=== PATIENT | male | born 1970 | race Caucasian/White ===

== ENCOUNTER 2024-10-24 13:26 | Inpatient (IN) ==
[2024-10-24 14:10] LABS: Hematocrit (blood only) 42.6 % (42.0-52.0); Hemoglobin 15.6 g/dl (14.0-18.0); Mean Corpuscular Hemoglobin 30.8 pg (25.0-34.0); Mean Corpuscular Hgb Conc 36.6 g/dL (32.0-36.0); Mean Platelet Volume 9.2 fL (9.4-12.4); Platelet Count 399 K/uL (130-400); Red Blood Count 5.07 M/uL (4.70-6.10); White Blood Count 9.07 K/ul (4.8-10.8)
[2024-10-24 14:32] LABS: Albumin Globulin Ratio 1.3 (0.9-2); Albumin Level 4.4 gm/dl (3.4-5.0); BUN Creatinine Ratio 20.3 (10-20); Bilirubin,Total 0.6 mg/dl (0.2-1.0); Calcium 9.7 mg/dl (8.6-10.3); Creatinine Clr Calc Pharmacy 131.1 ml/min; Globulin 3.4 gm/dl (2.5-4.0); Potassium 3.7 mmol/L (3.5-5.1); Total Protein 7.8 gm/dl (6.0-8.3)
--- NOTE | 2024-10-24 14:38 | XRay Report ---
XR toe(s) RT min 2V CLINICAL HISTORY: DM, BLISTER R GREAT TOE, EVAL OSTEO COMPARISON: None FINDINGS: There is soft tissue swelling and gas at the great toe. There is a small area of cortical thinning at the distal tip of the first distal phalanx which could represent very early osteomyelitis . No other evidence of osteomyelitis seen. No fracture or dislocation. IMPRESSION: Possible early osteomyelitis at the distal tip of the first distal phalanx. ACT 112: Negative or not required by law. Electronically signed by: Eric Betancoutr M.D. 10/24/2024 2:35 PM
--- NOTE | 2024-10-24 15:14 | Electrocardiogram Report ---
Test Reason : Blood Pressure : */* mmHG Vent. Rate : 107 BPM Atrial Rate : 107 BPM P-R Int : 166 ms QRS Dur : 90 ms QT Int : 346 ms P-R-T Axes : 58 -69 41 degrees QTcB Int : 461 ms Sinus tachycardia Left axis deviation Inferior infarct , age undetermined Poor R wave progression, consider anterior SD vs. lead placement vs. LVH Abnormal ECG No previous ECGs available Confirmed by Deuce Goodson ([id number]) on 10/24/2024 3:14:25 PM Referred By: Confirmed By: Deuce Goodson
[2024-10-24] MEDS ORDERED: VANCOMYCIN CONSULT ACTIVE PRN ×2 (15:23→16:10)
[2024-10-24] MEDS: CEFEPIME 2000MG 2,000 MG/20 ML SYR IV STA (15:38)
--- NOTE | 2024-10-24 15:42 | History & Physical Report ---
Date of Service October 24, 2024 Assessment & Plan (1) Right hallux osteomyelitis: Plan: 54-year-old male with past history of type 2 diabetes who has not followed with a PCP in over a year who presents with a chronic lower foot ulceration/wound with evidence of acute infection worsening over the last week, she shows signs of osteo on x-ray. He has had systemic symptoms including fevers and chills and is tachycardic on admission, does not have leukocytosis. Diabetic foot infection, right hallux osteomyelitis Empirically received cefepime/Flagyl/vancomycin in the ER. Patient is penicillin allergic Wound culture was collected at time of hospitalist assessment, wound probes deep? To bone X-ray with evidence of early osteomyelitis of the hallux Will continue Rocephin/Flagyl/vancomycin on admission. Will follow culture results Patient has been feverish with chills and sweats and is tachycardic and clear source of infection. Does not meet sepsis criteria on admission; blood cultures were ordered due to chills with potential for bacteremia and to ensure that these are clear prior to placing ultrasound-guided versus PICC in the event that 60 weeks of IV antibiotics are required CRP added and trended CBC daily Type II DM Patient does not follow his blood sugars recently. BSG 356 on admission. Reports he takes metformin 1 g twice daily at home Hold home metformin A1c added Basal bolus insulin, goal BSG [id number] Will likely need intensified glycemic control as outpatient.? Addition of Januvia versus basal insulin based on A1c. Establishment of care Previously followed with [facility] otherwise not followed recently. Would like to move care to [facility] physician group moving forward. Will need [facility] or [place] office appointment on discharge if possible, nurse navigator consulted DVT prophylaxis: Lovenox Disposition: MSO CODE STATUS: Full code Diet: Type II DM (2) T2DM (type 2 diabetes mellitus): History of Present Illness Primary Care Provider: Jami Bazan MD Danish is a 54-year-old male who presents with a right toe infection and suspected osteo. Has had purulent drainage and fever in the last several days, did have a right toe blister has been chronic for several months. Danish is seen at the bedside with his present. Reports he has a history of diabetes on metformin but has not checked his blood sugar follow-up with a primary care doctor in over a year. Around 18 months ago he did develop a callus/wound over his right hallux which was generally okay up until a week ago. 1 week ago became warm and patient has had fever and chills. No cough or respiratory symptoms. No nausea/vomiting. The wound does have some clear discharge. No pain, does have diminished sensation in the feet bilaterally. Is felt feverish and was brought into the ER for evaluation with concerns for diabetic foot infection. He does not currently follow with a PCP. Previously followed with [facility] but is interested in switching to [facility] moving forward. Other than metformin he takes no regular medications Denies tobacco and alcohol use Penicillin allergy, rash Full code Endorses history of radicular back pain and diabetes. Denies other chronic medical problems Allergies Allergy/AdvReac Type Severity Reaction Status Date / Time Penicillins Allergy Intermediate rash Verified 06/28/22 10:20 Home Medications Medication Instructions Recorded Confirmed Type metformin 500 mg tablet,extended 1,000 mg PO BIDM 10/24/24 10/24/24 History release 24 hr omeprazole 40 mg capsule,delayed 40 mg PO DAILYBB 10/24/24 10/24/24 History release Past Med/Surg History Problem List (Updated 10/24/24 @ 16:04 by Agustin Neal MD) T2DM (type 2 diabetes mellitus) Right hallux osteomyelitis Cervical spondylosis Hx of tonsillectomy Cervical radicular pain Social History (Updated 06/28/22 @ 10:28 by Gabrielle Andrade RN) Smoking Status: Never smoker Hx Alcohol Use: No Hx Substance Use: No Preferred Language: Yoruba Pigment Pumper Required: No Beliefs That Will Affect Care: None marital status: Current Living Situation: Family current occupational status: employed current occupation: IT How many Children do You have: 1 Feels Safe at Home: Yes Physical Exam Physical Exam: General: A&Ox3. NAD. Cooperative. HEENT: Atraumatic, normocephalic. Vision and hearing intact Pulm: Symmetrical chest rise. No increased work of breathing. No respiratory distress. Cardiac: RRR, -mrg. Radial pulses intact and symmetrical. Abdominal: Nontender, nondistended, soft. BS present. Extremities: Right hallux with 2 areas of ulceration. Small lateral area approximate 2 mm, and plantarmedial aspect is with a larger around 6-7 mm open wound which probes deeply. Clear discharge and surrounding erythema and callus are present. Wound culture collected at time of assessment Results & Data Results & Data Vital Signs (Past 12 Hours) Vital Signs Temp Pulse Resp BP Pulse Ox O2 Del Method 10/24/24 13:42 36.7 C 115 H 16 171/95 H 96 Room Air PG Care Time/CCT Total # of Minutes Spent Total Time Spent with Patient: Total time spent is greater than 50% in coordination of care (as documented) at patient's floor/unit and/or counseling patient: Coding Level of Care Code 40006 INT INP/OBS CARE 3/75MIN Diagnoses Right hallux osteomyelitis M86.9 T2DM (type 2 diabetes mellitus) E11.9
[2024-10-24] MEDS: metroNIDAZOLE 500 MG/100 ML BAG IV STA (15:43)
[2024-10-24] MEDS ORDERED: CARBOHYDRATES FOR HYPOGLYCEMIA PO PRN (16:10)
[2024-10-24] MEDS ORDERED: GLUCOSE 10 TAB/TUBE PO PRN (16:10)
[2024-10-24] MEDS ORDERED: GLUCAGON FOR INJ 1 MG VIAL SQ PRN (16:10)
[2024-10-24] MEDS ORDERED: DEXTROSE 50% 50 ML SYRINGE IV PRN (16:10)
[2024-10-24] MEDS ORDERED: GLUCOSE 40% GEL 15 GM TUBE PO PRN (16:10)
[2024-10-24 16:41] LABS: C Reactive Protein 7.23 mg/dl (0-0.5)
[2024-10-24] MEDS: VANCOMYCIN HCL 2,000 MG in SODIUM CHLORIDE 0.9% 500 ML IV ONE (16:49)
--- NOTE | 2024-10-24 17:00 | Pharmacy Report ---
Pharmacy PK ABX Note - Date of Service October 24, 2024 - Assessment and Plan Assessment 54 year old M receiving vancomycin/rocephin/flagyl for concerns of diabetic foot infection/osteomyelitis. Type 2 diabetic. Patient presenting with chronic lower foot ulceration/wound and evidence of possible infection. Toe xray suggestive of osteomyelitis. Notes report patient had fever/chills prior to admission. Plan Vancomycin * Loading dose: 2000 mg IV x 1 * Maintenance dose: 1750 mg IV every 12 hours * Regimen is predicted to achieve target AUC/DARON of 400-600 mg/L.hr * Plan to order vancomycin level if continued >48 hours Pharmacy will continue to follow and will adjust dose/frequency as necessary. Thank you. Pharmacy has transitioned to AUC monitoring for vancomycin. AUC/DARON is the preferred PK/PD target and is associated with decreased risk of nephrotoxicity compared to traditional trough targets.
[2024-10-24] MEDS: INSULIN ASPART PER UNIT CHARGE SC SCH (18:04)
[2024-10-24] MEDS: LANTUS PER UNIT CHARGE SQ SCH (18:04)
[2024-10-24] MEDS ORDERED: POLYETHYLENE (MIRALAX) 17 GM PACK PO PRN (18:17)
[2024-10-24] MEDS ORDERED: ACETAMINOPHEN 325 MG TAB PO PRN (18:17)
--- NOTE | 2024-10-24 20:17 | Emergency Department Note ---
History of Present Illness General Chief complaint: Toe Injury/Pain Stated complaint: RT BIG TOE INFECTION Time Seen by Provider: 10/24/24 14:05 History of Present Illness Provider complaint: Right toe wound 54-year-old male presents emergency department for right toe wound. He is here with his who is a nurse. reports that the patient suffered a wound on his right toe 1 year ago after walking. Patient is a diabetic. She reports that the patient never saw a doctor about it. She states that the patient has been picking on it and inserting objects into it to try to make the wound better. She states over the last week the wound has gotten worse and has been having purulent discharge that is foul-smelling and the patient has had chills. Home Medications Medication Instructions Recorded Confirmed Type metformin 500 mg tablet,extended 1,000 mg PO BIDM 10/24/24 10/24/24 History release 24 hr omeprazole 40 mg capsule,delayed 40 mg PO DAILYBB 10/24/24 10/24/24 History release Allergies Allergy/AdvReac Type Severity Reaction Status Date / Time Penicillins Allergy Intermediate rash Verified 06/28/22 10:20 Past Med/Surg History Problem List (Updated 10/24/24 @ 20:21 by Harry Jiang MD) Right hallux osteomyelitis (Acute) Cervical spondylosis Cervical radicular pain Medical History T2DM (type 2 diabetes mellitus) Surgical History Hx of tonsillectomy Social History Smoking Status: Never smoker Hx Alcohol Use: No Hx Substance Use: No Preferred Language: Latvian Machinist/Machine Builder Required: No Beliefs That Will Affect Care: None marital status: Current Living Situation: Family current occupational status: employed current occupation: IT How many Children do You have: 1 Feels Safe at Home: Yes Physical Exam Vital Signs Vital Signs - 24 hr 10/24/24 13:42 10/24/24 14:03 10/24/24 16:00 Temperature 36.7 C Temperature Source Temporal Artery Scan Pulse Rate 115 H Pulse Rate [Apical] 102 H Pulse Rhythm [Apical] Regular Pulse Strength Normal Pulse Strength [Apical] Normal Respiratory Rate 16 19 Respiratory Effort / Characteristics Non-Labored Spontaneous Non-Labored Spontaneous Respiratory Depth Normal Normal Normal Respiratory Pattern Regular Regular Blood Pressure 171/95 H Blood Pressure [Left Arm] 146/98 H Blood Pressure Mean 120 Blood Pressure Mean [Left Arm] 114 Blood Pressure Position Sitting Blood Pressure Position [Left Arm] Sitting Pulse Oximetry 96 96 Oxygen Delivery Method Room Air Room Air Sepsis Recent Fever Within 48 Hours No Sepsis New/Unexplained Change in Mental Status No Sepsis Action Taken by Nursing No Action Required 10/24/24 16:04 Temperature Temperature Source Pulse Rate 101 H Pulse Rate [Apical] Pulse Rhythm [Apical] Pulse Strength Pulse Strength [Apical] Respiratory Rate Respiratory Effort / Characteristics Respiratory Depth Respiratory Pattern Blood Pressure Blood Pressure [Left Arm] Blood Pressure Mean Blood Pressure Mean [Left Arm] Blood Pressure Position Blood Pressure Position [Left Arm] Pulse Oximetry Oxygen Delivery Method Sepsis Recent Fever Within 48 Hours Sepsis New/Unexplained Change in Mental Status Sepsis Action Taken by Nursing Physical Exam GENERAL: oriented to person, place, and time. appears well-developed and well- nourished. HENT: Exam performed. - Head: Normocephalic and atraumatic. EYES: Conjunctivae and EOM are normal. Right eye exhibits no discharge. Left eye exhibits no discharge. No scleral icterus. NECK: Normal range of motion. Neck supple. No JVD present. CV: Normal rate, regular rhythm, normal heart sounds and intact distal pulses. There is no peripheral edema. Palpable radial pulses bue. PULM/CHEST: Effort normal and breath sounds normal. No respiratory distress. No stridor. no wheezes. no rales. MUSC: Palpable DP and PT pulses bilateral lower extremities. NEURO: Motor and sensation grossly intact. SKIN: Wound over the right toe with purulent discharge coming from it. No fluctuant area. Course Course 1405: The patient was evaluated in room A4. A complete history and physical exam was performed 1525: Vital signs stable. Imaging shows possible osteomyelitis. Discussed with pharmacy and patient will be treated with vancomycin and cefepime and Flagyl. [facility]. Administered Medications Insulin Aspart (Insulin Aspart Per Unit Charge) 0 units SC ACHS [facility] Stop: 11/23/24 16:29 Last Admin: 10/24/24 18:04 Dose: 4 units Documented By: SNS Co-signed By: PHYLLIS Insulin Glargine (Lantus Per Unit Charge) 7 units SQ BID [facility] Stop: 11/23/24 16:14 Last Admin: 10/24/24 18:04 Dose: 7 units Documented By: RONALDO Co-signed By: PHYLLIS Discontinued Medications Vancomycin HCl 2,000 mg/ (Sodium Chloride) 540 mls @ 200 mls/hr IV NOW ONE Stop: 10/24/24 18:04 Last Infusion: 10/24/24 19:39 Dose: Infused Documented By: Admin: 10/24/24 16:49 Dose: 200 mls/hr Documented By: RONALDO Cefepime HCl (Maxipime 2000mg) 2,000 mg in 20 mls @ 5 mls/min IV NOW STA; Protocol Stop: 10/24/24 15:26 Last Admin: 10/24/24 15:38 Dose: 5 mls/min Documented By: RONALDO Metronidazole (Flagyl) 500 mg in 100 mls @ 100 mls/hr IV NOW STA Stop: 10/24/24 16:22 Last Infusion: 10/24/24 16:46 Dose: Infused Documented By: Admin: 10/24/24 15:43 Dose: 100 mls/hr Documented By: RONALDO Medical Decision Making Laboratory Data Attestation: I reviewed the patient's lab results. 10/24/24 13:56 10/24/24 13:56 Lab Results 10/24/24 Range/Units 13:56 WBC 9.07 (4.8-10.8) K/ul RBC 5.07 (4.70-6.10) M/uL Hgb 15.6 (14.0-18.0) g/dl Hct 42.6 (42.0-52.0) % MCV 84.0 (80.0-100.0) fL MCH 30.8 (25.0-34.0) pg MCHC 36.6 H (32.0-36.0) g/dL RDW Std Deviation 36.0 L (36.4-46.3) fL RDW Coeff of Ana 12.0 (11.5-14.5) % Plt Count 399 (130-400) K/uL MPV 9.2 L (9.4-12.4) fL Sodium 135 L (136-145) mmol/L Potassium 3.7 (3.5-5.1) mmol/L Chloride 100 (98-107) mmol/L Carbon Dioxide 25 (21-32) mmol/L Anion Gap 10 (3-11) BUN 15 (6-23) mg/dl Creatinine 0.74 (0.6-1.4) mg/dl Est Cr Clr Drug Dosing 131.1 ml/min eGFR 107.01 BUN/Creatinine Ratio 20.3 H (10-20) Glucose 356 H* (70-99(Fasting)) mg/dl Calcium 9.7 (8.6-10.3) mg/dl Total Bilirubin 0.6 (0.2-1.0) mg/dl AST 21 (13-39) U/L ALT 29 (7-52) U/L Alkaline Phosphatase 138 H (34-104) U/L C-Reactive Protein 7.23 H (0-0.5) mg/dl Total Protein 7.8 (6.0-8.3) gm/dl Albumin 4.4 (3.4-5.0) gm/dl Globulin 3.4 (2.5-4.0) gm/dl Albumin/Globulin Ratio 1.3 (0.9-2) Imaging Data Radiologist's Impression: Toe X-Ray 10/24/24 13:49 XR toe(s) RT min 2V CLINICAL HISTORY: DM, BLISTER R GREAT TOE, EVAL OSTEO COMPARISON: None FINDINGS: There is soft tissue swelling and gas at the great toe. There is a small area of cortical thinning at the distal tip of the first distal phalanx which could represent very early osteomyelitis. No other evidence of osteomyelitis seen. No fracture or dislocation. IMPRESSION: Possible early osteomyelitis at the distal tip of the first distal phalanx. ACT 112: Negative or not required by law. Electronically signed by: Eric Betancourt M.D. 10/24/2024 2:35 PM MDM Narrative Vital signs stable. Imaging shows possible osteomyelitis. Discussed with pharmacy and patient will be treated with vancomycin and cefepime and Flagyl. [facility]. Impression & Plan Right hallux osteomyelitis Discharge Plan Visit Data Chief Complaint: Toe Injury/Pain Stated Complaint: RT BIG TOE INFECTION ED Provider: Harry Jiang Discharge Problem: Right hallux osteomyelitis Patient Disposition: Admitted As Inpatient Discharge Instructions Interventions: ED Discharge Assessment Last Done: 10/24/24 18:17
[2024-10-24] MEDS: ENOXAPARIN INJ 40 MG/0.4 ML SYR SQ SCH (21:05)
[2024-10-24] MEDS: cefTRIAXone SODIUM 2,000 MG/50 ML BAG IV SCH (23:07)
[2024-10-24] MEDS: metroNIDAZOLE 500 MG/100 ML BAG IV SCH (23:44)
[2024-10-25] MEDS: VANCOMYCIN HCL 1,750 MG in SODIUM CHLORIDE 0.9% 500 ML IV SCH (03:04)
[2024-10-25 07:12] LABS: Basophils # (auto) 0.05 K/uL (0.00-0.20); Basophils % (auto) 0.6 %; Eosinophils % (auto) 3.9 %; Hematocrit (blood only) 38.3 % (42.0-52.0); Hemoglobin 13.5 g/dl (14.0-18.0); Immature Granulocytes # (auto) 0.08 K/uL (0.01-0.20); Lymphocytes # (auto) 1.85 K/uL (1.20-3.40); Lymphocytes % (auto) 23.9 %; Mean Corpuscular Hemoglobin 30.6 pg (25.0-34.0); Mean Corpuscular Hgb Conc 35.2 g/dL (32.0-36.0); Mean Corpuscular Volume 86.8 fL (80.0-100.0); Mean Platelet Volume 9.2 fL (9.4-12.4); Monocytes # (auto) 0.81 K/uL (0.11-0.59); Monocytes % (auto) 10.5 %; Neutrophils # (auto) 4.65 K/uL (1.40-6.50); Neutrophils % (auto) 60.1 %; Platelet Count 356 K/uL (130-400); RDW Coefficient of Variation 11.9 % (11.5-14.5); RDW Standard Deviation 38.3 fL (36.4-46.3); Red Blood Count 4.41 M/uL (4.70-6.10); White Blood Count 7.74 K/ul (4.8-10.8)
[2024-10-25 07:35] LABS: C Reactive Protein 4.93 mg/dl (0-0.5); Calcium 8.9 mg/dl (8.6-10.3); Creatinine Clr Calc Pharmacy 138.6 ml/min; Potassium 3.7 mmol/L (3.5-5.1)
[2024-10-25 07:38] LABS: Estimated Average Glucose 312 mg/dl; Hemoglobin A1C 12.5 % (4.5-5.6)
[2024-10-25] MEDS ORDERED: INFLUENZA VACC TS2024-25(6m+)/PF (IIV3) 0.5mL Syr IM ONE (09:00)
[2024-10-25] MEDS: GADOBUTROL 65ML VIAL IV ONE (13:24)
--- NOTE | 2024-10-25 14:27 | Magnetic Resonance Report ---
MR foot RT wo/w con HISTORY: 54 years-old Male R great toe osteomyelitis? Acute pain and swelling of the right foot with possible great toe osteomyelitis COMPARISON: Radiograph 10/24/2024 TECHNIQUE: Multiplanar multisequence MRI of the right foot is obtained with and without IV contrast. FINDINGS: There is moderate subcutaneous edema throughout the great toe and dorsal foot. Peripherally enhancing cutaneous ulcer on the distal medial great toe measures up to 1.5 cm in length on image 8 series 5. No drainable fluid collection. This is surrounded by a 3 cm focus of decreased enhancement involving the soft tissues of the distal toe on image 7 series 11 and image 21 series 12 suggestive of tissue n ecrosis. The imaged flexor and extensor tendons and ligaments of the foot appear intact. Multifocal osteoarthritis, severe within the first MTP joint. There is marked marrow edema of the fir st distal phalanx along with moderately diffuse decreased T1 marrow signal and diffuse enhancement. N o definite cortical erosion identified at this time. Relatively preserved marrow signal of the first proximal phalanx. Areas of scattered mild to moderate marrow edema throughout the mid foot secondary to osteoarthritis. IMPRESSION: 1. Marked marrow edema of the first distal phalanx with moderately decreased T1 marrow signal. The co rtices appear relatively well preserved at this time without identifiable bony erosions. Findings are suggestive of reactive osteitis versus early developing osteomyelitis. 2. Great toe cutaneous ulcer/sinus tract extending to the adjacent distal phalangeal cortex. There is associated cellulitis with suggested distal toe tissue necrosis. 3. No definite abscess. ACT 112: Negative or not required by law. The above report was generated using voice recognition software. It may contain grammatical, syntax o r spelling errors. Electronically signed by: Tiago Jo M.D. 10/25/2024 2:25 PM
--- NOTE | 2024-10-25 19:20 | Hospitalist Progress Note ---
Date of Service October 25, 2024 Assessment & Plan (1) Right hallux osteomyelitis: Plan: 54yo male with uncontrolled type 2 diabetes who has not followed with a PCP in over a year. Presented with a chronic right great toe ulceration/wound with evidence of acute infection worsening over the last week. x-ray with possible osteomyelitis of right great toe distal tuft. MRI of right great toe c/w osteomyelitis. I consulted Dr Denney from podiatry. He has advised amputation. Remains on rocephin/flagyl/vancomycin. Culture from right great toe pending. On exam has intact arterial circulation; defer on duplex study of arterial system. Needs improved glycemic control - see below. Appreciate podiatry assistance. (2) T2DM (type 2 diabetes mellitus): Plan: uncontrolled with a1c 12.5% titrate lantus BID titrate novolog suspect he will need some insulin at d/c in addition to his metformin patient is motivated to get his DM under better control Plan DVT proph - lovenox daily updated at bedside Admission and Anticipated Discharge Date Admission Date: October 24, 2024 Subjective patient denies pain in his right great toe at bedside he voices frustration that he hasn't been taking good care of himself, his DM, etc. he is committed to getting back on track with his overall health he is not opposed to insulin at home if deemed necessary appetite is wnl Review of Systems Review of Systems: gen - no fevers or chills cv - no chest pain pulm - no dyspnea Physical Exam Physical Exam: gen - nontoxic, NAD, pleasant mouth - MMM, no thrush neck - no JVD heart - RRR, s1 s2, no murmur lungs - CTA b/l abd - soft NT ND BS+ ext - b/l foot pulses 2+, no edema skin - right great toe - marked generalized swelling of entire toe; purulent discharge distal tuft with open ulcer; erythema of right great toe; malodor present; no cellulitis of the right foot musculo - neuropathic changes of b/l feet (high arches, hammer toes, etc) Results & Data Results & Data Vital Signs (Past 12 Hours) Vital Signs Temp Pulse Resp BP Pulse Ox O2 Del Method 10/25/24 15:11 37 C 91 H 18 137/86 96 Room Air Laboratory Results Laboratory Results - last 24 hr 10/24/24 10/25/24 10/25/24 20:10 06:26 07:34 WBC 7.74 RBC 4.41 L Hgb 13.5 L Hct 38.3 L MCV 86.8 MCH 30.6 MCHC 35.2 RDW Std Deviation 38.3 RDW Coeff of Ana 11.9 Plt Count 356 MPV 9.2 L Immature Gran % (Auto) 1.0 Neut % (Auto) 60.1 Lymph % (Auto) 23.9 [place] % (Auto) 10.5 Eos % (Auto) 3.9 Baso % (Auto) 0.6 Neut # (Auto) 4.65 Lymph # (Auto) 1.85 [place] # (Auto) 0.81 H Eos # (Auto) 0.30 Baso # (Auto) 0.05 Immature Gran # (Auto) 0.08 Sodium 137 Potassium 3.7 Chloride 103 Carbon Dioxide 26 Anion Gap 8 BUN 14 Creatinine 0.70 Est Cr Clr Drug Dosing 138.6 eGFR 108.82 BUN/Creatinine Ratio 20.0 Glucose 256 H POC Glucose 264 H 227 H Estimat Average Glucose 312 Hemoglobin A1c 12.5 H Calcium 8.9 C-Reactive Protein 4.93 H 10/25/24 10/25/24 11:42 16:54 WBC RBC Hgb Hct MCV MCH MCHC RDW Std Deviation RDW Coeff of Ana Plt Count MPV Immature Gran % (Auto) Neut % (Auto) Lymph % (Auto) [place] % (Auto) Eos % (Auto) Baso % (Auto) Neut # (Auto) Lymph # (Auto) [place] # (Auto) Eos # (Auto) Baso # (Auto) Immature Gran # (Auto) Sodium Potassium Chloride Carbon Dioxide Anion Gap BUN Creatinine Est Cr Clr Drug Dosing eGFR BUN/Creatinine Ratio Glucose POC Glucose 233 H 192 H Estimat Average Glucose Hemoglobin A1c Calcium C-Reactive Protein Diagnostic Findings Foot MRI 10/25/24 10:46 MR foot RT wo/w con HISTORY: 54 years-old Male R great toe osteomyelitis? Acute pain and swelling of the right foot with possible great toe osteomyelitis COMPARISON: Radiograph 10/24/2024 TECHNIQUE: Multiplanar multisequence MRI of the right foot is obtained with and without IV contrast. FINDINGS: There is moderate subcutaneous edema throughout the great toe and dorsal foot. Peripherally enhancing cutaneous ulcer on the distal medial great toe measures up to 1.5 cm in length on image 8 series 5. No drainable fluid collection. This is surrounded by a 3 cm focus of decreased enhancement involving the soft tissues of the distal toe on image 7 series 11 and image 21 series 12 suggestive of tissue necrosis. The imaged flexor and extensor tendons and ligaments of the foot appear intact. Multifocal osteoarthritis, severe within the first MTP joint. There is marked marrow edema of the first distal phalanx along with moderately diffuse decreased T1 marrow signal and diffuse enhancement. No definite cortical erosion identified at this time. Relatively preserved marrow signal of the first proximal phalanx. Areas of scattered mild to moderate marrow edema throughout the mid foot secondary to osteoarthritis. IMPRESSION: 1. Marked marrow edema of the first distal phalanx with moderately decreased T1 marrow signal. The cortices appear relatively well preserved at this time without identifiable bony erosions. Findings are suggestive of reactive osteitis versus early developing osteomyelitis. 2. Great toe cutaneous ulcer/sinus tract extending to the adjacent distal phalangeal cortex. There is associated cellulitis with suggested distal toe tissue necrosis. 3. No definite abscess. ACT 112: Negative or not required by law. The above report was generated using voice recognition software. It may contain grammatical, syntax or spelling errors. Electronically signed by: Tiago Jo M.D. 10/25/2024 2:25 PM PG Care Time/CCT Total # of Minutes Spent Total Time Spent with Patient: Total time spent is greater than 50% in coordination of care (as documented) at patient's floor/unit and/or counseling patient: Coding Level of Care Code 95306 SUB INP/OBS CARE 2/35MIN Diagnoses Right hallux osteomyelitis M86.9 T2DM (type 2 diabetes mellitus) E11.9
[2024-10-25] MEDS: LANTUS PER UNIT CHARGE SQ SCH (20:53)
--- NOTE | 2024-10-25 21:22 | Podiatry Consultation ---
Date of Consultation October 25, 2024 Assessment & Plan (1) Right hallux osteomyelitis: (2) Chronic ulcer of right foot with necrosis of bone: (3) Uncontrolled type 2 diabetes mellitus with hyperglycemia: (4) Diabetes mellitus with foot ulcer and gangrene: Plan Patient examined and evaluated. MRI and imaging reviewed. Discussed at length treatment options/etiology of this right hallux ulceration. Options include 2 months IV antibiotics versus hallux amputation at the IPJ. He is leaning towards amputation as a more definitive treatment. He will discuss this further with his and we will work on getting it on the schedule for tomorrow, if amenable. Preoperative orders to be placed in case. Will send samples for culture and pathology as indicated. Thanks for the consult. We're always happy to help when possible. History of Present Illness Reason for Consultation: Right hallux osteomyelitis Attending Physician: Sincere Choe MD History of Present Illness Patient seen at bedside. States he has a history of diabetes and blister formation to this inside bottom of the great toe in the past. Because prior blisters healed well, he did not seek treatment despite his diabetes diagnosis and "knowing better." It did not hurt and he expected it to heal. Instead, over the last few weeks it has progressed to a significant infection, which drove him to seek treatment. His is at bedside and agrees with this series of events; they are now interested in how to approach treatment with the bone infection. He does admit to systemic and local signs/symptoms of infection and just "feeling sick." Further, he states that his blood sugar has not been well controlled recently but is unsure of his most recent A1c. Allergies Allergy/AdvReac Type Severity Reaction Status Date / Time Penicillins Allergy Intermediate rash Verified 06/28/22 10:20 Home Medications Medication Instructions Recorded Confirmed Type metformin 500 mg tablet,extended 1,000 mg PO BIDM 10/24/24 10/24/24 History release 24 hr omeprazole 40 mg capsule,delayed 40 mg PO DAILYBB 10/24/24 10/24/24 History release Patient History Medical History T2DM (type 2 diabetes mellitus) Surgical History Hx of tonsillectomy Social History Smoking Status: Never smoker Hx Alcohol Use: Yes Alcohol type: beer, wine and hard liquor Hx Substance Use: No Preferred Language: Cymro Communication Ability: Effective Trouble Locator Test Desk Required: No Beliefs That Will Affect Care: None marital status: Current Living Situation: Spouse current occupational status: employed current occupation: IT How many Children do You have: 1 Other Information That Helps Us Care for You: No Feels Safe at Home: Yes Safety Concerns: Feels Safe At This Time Assistive Devices: None Review of Systems Review of Systems: All systems reviewed & are unremarkable except as noted in HPI & below Constitutional: + fever, + malaise and + weakness; no ch ills and no fatigue Eyes: no problem reported Ear, Nose, Mouth, Throat: no problem reported Respiratory: no problem reported Cardiovascular: + edema; no problem reported Gastrointestinal: no nausea, no vomiting and no problem reported Musculoskeletal: no problem reported Integumentary: + skin ulcer, + wounds and + erythema Neurologic: + loss of sensation, + numbness and + pa resthesia; no localized weakness and no generalized weakness Psychiatric: no problem reported Physical Exam Physical Exam: RLE Focused exam: DP/PT pulses faintly palpable. CFT brisk to digits. Hair growth noted to digits. Skin supple, hydrated. Ulceration is noted to plantar medial distal phalanx. Ulcer probes to distal phalanx with lara purulence noted on exam. Diffuse edema associated with this ulceration/infection to the great toe. Erythema noted to foot overall with minimal streaking/ascending cellultis noted Plain film imaging showed ulceration to soft tissue with some cortical erosion; MRI confirms this with increased fluid signal intensity to the distal phalanx, all confirming osteomyelitis. Constitutional: WD/WN, vitals as above + ill appearing; no acute distress Eyes: PERRL, conjunctivae normal, anicteric sclerae ENMT: external ear and nose normal, oropharynx normal Neck: trachea midline, no thyromegaly normal visual inspection Respiratory: normal respiratory effort; no respiratory distress Cardiovascular: Rate/Rhythm: regular rate and regular rhythm Vessels: posterior tibial pulses present and dorsalis pedis pulses present Chest (Breasts): Chest: normal inspection of chest Gastrointestinal (Abdomen): Inspection/Auscultation: abdomen normal to inspection Percussion/Palpation: + abdomen tender and abdomen soft Musculoskeletal: no cyanosis or clubbing, extremities motor strength 5/5 Head/Neck/Chest: normocephalic and head atraumatic Extremities: extremities normal to inspection Neurologic: awake; no focal motor deficits Psychiatric: A+Ox3, euthymic affect Results & Data Vital Signs (Past 12 Hours) Vital Signs Temp Pulse Resp BP Pulse Ox O2 Del Method 10/25/24 19:39 36.4 C L 89 16 141/88 H 94 Room Air 10/25/24 15:11 37 C 91 H 18 137/86 96 Room Air
[2024-10-26] MEDS ORDERED: Nursing to Pharmacy Communication SCH ×2 (00:45→18:30)
[2024-10-26] MEDS: INSULIN ASPART PER UNIT CHARGE SC SCH ×2 (01:24→20:57)
[2024-10-26] MEDS: ONDANSETRON INJ 2 MG/ML 2 ML VIAL IV PRN (02:13)
[2024-10-26] MEDS: PANTOprazole 40 MG/10 ML SYR IV ONE (06:35)
[2024-10-26 07:26] LABS: BUN Creatinine Ratio 19.4 (10-20); Calcium 9.3 mg/dl (8.6-10.3); Creatinine Clr Calc Pharmacy 134.8 ml/min; Potassium 3.9 mmol/L (3.5-5.1)
[2024-10-26 07:34] LABS: Basophils # (auto) 0.04 K/uL (0.00-0.20); Basophils % (auto) 0.6 %; Eosinophils # (auto) 0.25 K/uL (0.00-0.50); Eosinophils % (auto) 3.9 %; Hematocrit (blood only) 37.2 % (42.0-52.0); Hemoglobin 13.1 g/dl (14.0-18.0); Immature Granulocytes # (auto) 0.08 K/uL (0.01-0.20); Immature Granulocytes % (auto) 1.3 %; Lymphocytes # (auto) 1.76 K/uL (1.20-3.40); Lymphocytes % (auto) 27.5 %; Mean Corpuscular Hemoglobin 30.9 pg (25.0-34.0); Mean Corpuscular Hgb Conc 35.2 g/dL (32.0-36.0); Mean Corpuscular Volume 87.7 fL (80.0-100.0); Mean Platelet Volume 9.2 fL (9.4-12.4); Monocytes # (auto) 0.53 K/uL (0.11-0.59); Monocytes % (auto) 8.3 %; Neutrophils # (auto) 3.74 K/uL (1.40-6.50); Neutrophils % (auto) 58.4 %; Platelet Count 375 K/uL (130-400); RDW Coefficient of Variation 12.1 % (11.5-14.5); Red Blood Count 4.24 M/uL (4.70-6.10)
[2024-10-26 07:41] LABS: Thyroid Stimulating Hormone 1.935 uIu/ml (0.300-4.500)
--- NOTE | 2024-10-26 13:33 | History & Physical Bridge Note ---
Date of Service October 26, 2024 History & Physical Bridge Note I have examined the patient, reviewed the History & Physical and in the interval since the performance of the History & Physical I have noted the following changes of clinical significance: no changes noted. Reviewed preoperative instructions, postoperative instructions, risks, and outcomes. Consent obtained for right hallux partial amputation. All questions answered.
[2024-10-26] MEDS ORDERED: MIDAZOLAM HCL 1 MG/ML 2ML VIAL ONE (16:04)
[2024-10-26] MEDS ORDERED: PROPOFOL IV EMULSION 10 MG/ML 20 ML VIAL IV ONE ×2 (16:04→16:53)
[2024-10-26] MEDS ORDERED: LIDOCAINE 2% 2 ML VIAL/AMP(20MG/ML) INFIL ONE (16:04)
[2024-10-26] MEDS ORDERED: ONDANSETRON INJ 2 MG/ML 2 ML VIAL IV PRN (16:13)
[2024-10-26] MEDS ORDERED: ATROPINE SULFATE 0.1 MG/ML 10ML SYR IV PRN (16:13)
[2024-10-26] MEDS ORDERED: fentaNYL citrate PF 100 MCG/2 ML VIAL IV PRN (16:13)
[2024-10-26] MEDS ORDERED: ePHEDrine sulfate 50 MG/ML AMP IV PRN (16:13)
--- NOTE | 2024-10-26 16:13 | Anesthesiology Consultation ---
Date of Service October 26, 2024 Assessment & Plan (1) Encounter for pre-operative examination: Chart Review Chart Review: Acceptable Risk for Surgery and Patient NOT seen in Pre Admission Testing Consults Requested none History Surgery Operation Date: 10/26/24 07:50 Proposed Procedures p Right Great Toe Amputation - Jo-Ann Denney DPM Height/Weight Height: 6 ft 2 in Weight: 92.5 kg Allergies Allergy/AdvReac Type Severity Reaction Status Date / Time Penicillins Allergy Intermediate rash Verified 06/28/22 10:20 Medications Home Medications Medication Instructions Recorded Confirmed Last Taken metformin 500 mg tablet,extended 1,000 mg PO BIDM 10/24/24 10/24/24 Unknown release 24 hr omeprazole 40 mg capsule,delayed 40 mg PO DAILYBB 10/24/24 10/24/24 Unknown release Active Medications Generic Name Dose Route Start Last Admin Trade Name Freq PRN Reason Stop Dose Admin Enoxaparin Sodium 40 mg 10/24/24 21:00 10/25/24 20:54 Enoxaparin Inj 40 Mg/0.4 Ml Syr SQ 11/23/24 20:59 40 mg HS KRISTAN Administration Ceftriaxone Sodium 2,000 mg in 50 mls @ 100 mls/hr 10/25/24 00:00 10/26/24 01:00 Rocephin IV 12/06/24 00:00 Infused Q24H KRISTAN Infusion Metronidazole 500 mg in 100 mls @ 100 mls/hr 10/25/24 00:00 10/26/24 16:00 Flagyl IV 12/06/24 00:00 100 mls/hr Q8H KRISTAN Administration Protocol Insulin Aspart 0 units 10/26/24 00:45 10/26/24 12:11 Insulin Aspart Per Unit Charge SC 11/25/24 00:44 1 units Q6 KRISTAN Administration Ondansetron HCl 4 mg 10/26/24 01:50 10/26/24 02:13 Ondansetron Inj 2 Mg/Ml 2 Ml Vial IV 11/25/24 01:49 4 mg Q6H PRN Administration Nausea And Vomiting NPO Date Last Intake of Fluids: 10/25/24 Time Last Intake of Fluids: 23:00 Date Last Intake of Solids: 10/25/24 Time Last Intake of Solids: 23:00 Past Medical History Medical History T2DM (type 2 diabetes mellitus) Past Surgical History Surgical History Hx of tonsillectomy Social History Smoking Status: Never smoker Hx Alcohol Use: Yes Alcohol type: beer, wine and hard liquor alcohol intake frequency: holidays/special occasions only Hx Substance Use: No substance use type: does not use Physical Exam Vital Signs Last Vital Signs Temp 98.6 F 10/26/24 16:00 Pulse 97 H 10/26/24 16:00 Resp 18 10/26/24 16:00 BP 155/98 H 10/26/24 16:00 Pulse Ox 97 10/26/24 16:00 O2 Del Method Room Air 10/26/24 16:00 Testing Laboratory Results 10/26/24 06:08 10/26/24 06:08 Hemoglobin A1c 12.5 % (4.5-5.6) H 10/25/24 06:26 10/24/24 16:00 Gram Stain - Final Toe,Right Great Aerobic and Anaerobic Culture - Preliminary Streptococcus canis Prevotella denticola 10/24/24 17:36 Aerobic Blood Culture - Preliminary Blood No growth in Aerobic bottle after 24 hours. Anaerobic Blood Culture - Preliminary No growth in Anaerobic bottle after 24 hours. 10/24/24 16:23 Aerobic Blood Culture - Preliminary Blood No growth in Aerobic bottle after 24 hours. Anaerobic Blood Culture - Preliminary No growth in Anaerobic bottle after 24 hours. 10/26/24 10/26/24 11:59 06:07 POC Glucose 180 H 187 H
[2024-10-26] MEDS ORDERED: KETAMINE HCL 10MG/ML SYR ONE (16:32)
[2024-10-26] MEDS ORDERED: ONDANSETRON INJ 2 MG/ML 2 ML VIAL ONE (16:44)
[2024-10-26] MEDS: BUPIVACAINE 0.5 % 5 MG/1 ML MPF 30ML VIAL ONE (17:17)
--- NOTE | 2024-10-26 18:18 | Hospitalist Progress Note ---
Date of Service October 26, 2024 Assessment & Plan (1) Right hallux osteomyelitis: Plan: 54yo male with uncontrolled type 2 diabetes who has not followed with a PCP in over a year. Presented with a chronic right great toe ulceration/wound with evidence of acute infection worsening over the last week. x-ray with possible osteomyelitis of right great toe distal tuft. MRI of right great toe c/w osteomyelitis. Culture from right great toe has grown 2 pathogens to date --> strep canis prevotella denticola no MRSA - stop vancomycin today Dr Denney from podiatry performed right great toe amputation appreciate the assistance from podiatry cont fina/[place] for now by report podiatry got good surgical margins and thus IV abx won't be needed at d/c can likely give 2 weeks of PO augmentin at d/c which will cover current path ogens (as long as no new pathogens grow) follow intra op cultures will need surgical shoe for right foot can WBAT with that shoe in place on exam has intact arterial circulation; defer on duplex study of arterial system Needs improved glycemic control - see below (2) T2DM (type 2 diabetes mellitus): Plan: uncontrolled with a1c 12.5% improving titrate lantus BID titrate novolog suspect he will need some insulin at d/c in addition to his metformin he is willing to do lantus called lantus pens into [facility] pharmacy for him to bring to hospital so he can self-administer and get the hang of it patient is motivated to get his DM under better control Plan DVT proph - lovenox daily updated at bedside today Admission and Anticipated Discharge Date Admission Date: October 24, 2024 Subjective saw patient post-op from his right great toe amputation he denied any pain in the right foot mild nausea while in PACU - now resolved no chest pain or dyspnea or diaphoresis he is hoping for d/c home tomorrow willing to do lantus at home for his DM Review of Systems Review of Systems: gen - no fevers or chills cv - no cp, no orthopnea pulm - no dyspnea GI - no vomiting despite the nausea Physical Exam Physical Exam: gen - nontoxic, NAD, pleasant, laying in bed comfortably mouth - MMM, no thrush neck - no JVD heart - RRR, s1 s2, no murmur lungs - CTA b/l abd - soft NT ND BS+ ext - b/l foot pulses 2+, no edema skin - right foot/ankle dressings intact - I did not remove these Results & Data Results & Data Vital Signs (Past 12 Hours) Vital Signs Temp Pulse Pulse Resp BP Pulse Ox O2 Del Method 10/26/24 18:00 36.7 C 75 15 140/86 97 Room Air 10/26/24 17:50 73 12 136/90 99 Room Air 10/26/24 17:40 79 15 132/93 99 Room Air 10/26/24 17:32 36.4 C L 76 13 124/83 100 Room Air 10/26/24 16:00 37.0 C 97 H 18 155/98 H 97 Room Air 10/26/24 15:04 36.7 C 95 H 17 162/84 H 98 Room Air 10/26/24 07:28 37.2 C 87 18 117/75 93 Room Air Laboratory Results Laboratory Results - last 24 hr 10/26/24 10/26/24 10/26/24 06:07 06:08 11:59 WBC 6.40 RBC 4.24 L Hgb 13.1 L Hct 37.2 L MCV 87.7 MCH 30.9 MCHC 35.2 RDW Std Deviation 39.0 RDW Coeff of Ana 12.1 Plt Count 375 MPV 9.2 L Immature Gran % (Auto) 1.3 Neut % (Auto) 58.4 Lymph % (Auto) 27.5 [place] % (Auto) 8.3 Eos % (Auto) 3.9 Baso % (Auto) 0.6 Neut # (Auto) 3.74 Lymph # (Auto) 1.76 [place] # (Auto) 0.53 Eos # (Auto) 0.25 Baso # (Auto) 0.04 Immature Gran # (Auto) 0.08 Sodium 139 Potassium 3.9 Chloride 104 Carbon Dioxide 28 Anion Gap 7 BUN 14 Creatinine 0.72 Est Cr Clr Drug Dosing 134.8 eGFR 107.89 BUN/Creatinine Ratio 19.4 Glucose 197 H POC Glucose 187 H 180 H Calcium 9.3 TSH 1.935 Random Vancomycin 10/26/24 10/26/24 10/26/24 12:54 16:18 17:34 WBC RBC Hgb Hct MCV MCH MCHC RDW Std Deviation RDW Coeff of Ana Plt Count MPV Immature Gran % (Auto) Neut % (Auto) Lymph % (Auto) [place] % (Auto) Eos % (Auto) Baso % (Auto) Neut # (Auto) Lymph # (Auto) [place] # (Auto) Eos # (Auto) Baso # (Auto) Immature Gran # (Auto) Sodium Potassium Chloride Carbon Dioxide Anion Gap BUN Creatinine Est Cr Clr Drug Dosing eGFR BUN/Creatinine Ratio Glucose POC Glucose 165 H 160 H Calcium TSH Random Vancomycin 10.2 10/26/24 10/26/24 18:38 20:33 WBC RBC Hgb Hct MCV MCH MCHC RDW Std Deviation RDW Coeff of Ana Plt Count MPV Immature Gran % (Auto) Neut % (Auto) Lymph % (Auto) [place] % (Auto) Eos % (Auto) Baso % (Auto) Neut # (Auto) Lymph # (Auto) [place] # (Auto) Eos # (Auto) Baso # (Auto) Immature Gran # (Auto) Sodium Potassium Chloride Carbon Dioxide Anion Gap BUN Creatinine Est Cr Clr Drug Dosing eGFR BUN/Creatinine Ratio Glucose POC Glucose 139 H 180 H Calcium TSH Random Vancomycin PG Care Time/CCT Total # of Minutes Spent Total Time Spent with Patient: Total time spent is greater than 50% in coordination of care (as documented) at patient's floor/unit and/or counseling patient: Coding Level of Care Code 74531 SUB INP/OBS CARE 2/35MIN Diagnoses Right hallux osteomyelitis M86.9 T2DM (type 2 diabetes mellitus) E11.9
--- NOTE | 2024-10-26 18:55 | Post Operative Brief Note ---
Immediate Post Op Note Date of Surgery October 26, 2024 Pre & Post Diagnosis Operation Date: 10/26/24 07:50 Pre-Op Diagnosis: (1) Right hallux osteomyelitis. (2) Chronic ulcer of right foot with necrosis of bone. (3) Uncontrolled type 2 diabetes mellitus with hyperglycemia. (4) Diabetes mellitus with foot ulcer and gangrene. Post-Op Diagnosis: (1) Right hallux osteomyelitis. (2) Chronic ulcer of right foot with necrosis of bone. (3) Uncontrolled type 2 diabetes mellitus with hyperglycemia. (4) Diabetes mellitus with foot ulcer and gangrene. I identified the patient and participated in the time-out.: Yes Procedure Operation Date: 10/26/24 07:50 Actual Procedures p Right Great Toe Amputation(Right) - Jo-Ann Denney DPM Surgeon Jo-Ann Denney DPM Underwriting Analyst none Estimated Blood Loss 10 Findings Consistent with Post-Op Diagnosis Specimens swab culture of right great toe wound right great toe ulcer tissue sent for culture aerobic and anaerobic right great toe sent for path Anesthesia Type MAC Complications none Disposition Accompanied Patient To Recovery: Yes
--- NOTE | 2024-10-26 19:33 | Anesthesiology Progress Note ---
Date of Service October 26, 2024 Anesthesia Post Procedure Vital Signs Vital Signs: Temp Pulse Pulse Resp BP Pulse Ox O2 Del Method 10/26/24 19:04 98.6 F 86 18 137/89 96 Room Air 10/26/24 18:35 97.3 F L 78 15 135/87 98 Room Air 10/26/24 18:05 98.2 F 79 16 144/85 H 99 Room Air 10/26/24 18:00 98.1 F 75 15 140/86 97 Room Air 10/26/24 17:50 73 12 136/90 99 Room Air 10/26/24 17:40 79 15 132/93 99 Room Air 10/26/24 17:32 97.5 F L 76 13 124/83 100 Room Air 10/26/24 16:00 98.6 F 97 H 18 155/98 H 97 Room Air 10/26/24 15:04 98.1 F 95 H 17 162/84 H 98 Room Air 10/26/24 07:28 99.0 F 87 18 117/75 93 Room Air 10/25/24 19:39 97.5 F L 89 16 141/88 H 94 Room Air Transfer of Care Handoff Completed per policy Notes Mental Status: alert / awake / arousable and participated in evaluation Patient Amnestic to Procedure: Yes Nausea / Vomiting: adequately controlled Pain: adequately controlled Airway Patency, RR, SpO2: stable & adequate BP & HR: stable & adequate Hydration State: stable & adequate Anesthetic Complications: no major complications apparent and Pt Satisfied with anesthetic care
[2024-10-26] MEDS: LANTUS PER UNIT CHARGE SQ SCH (20:57)
[2024-10-27 06:57] LABS: Basophils # (auto) 0.05 K/uL (0.00-0.20); Basophils % (auto) 0.6 %; Eosinophils # (auto) 0.24 K/uL (0.00-0.50); Eosinophils % (auto) 2.9 %; Hemoglobin 14.1 g/dl (14.0-18.0); Immature Granulocytes % (auto) 1.2 %; Lymphocytes # (auto) 2.31 K/uL (1.20-3.40); Lymphocytes % (auto) 27.7 %; Mean Corpuscular Hemoglobin 30.5 pg (25.0-34.0); Mean Corpuscular Hgb Conc 35.3 g/dL (32.0-36.0); Mean Corpuscular Volume 86.6 fL (80.0-100.0); Monocytes # (auto) 0.77 K/uL (0.11-0.59); Monocytes % (auto) 9.2 %; Neutrophils # (auto) 4.88 K/uL (1.40-6.50); Neutrophils % (auto) 58.4 %; Platelet Count 434 K/uL (130-400); RDW Standard Deviation 38.2 fL (36.4-46.3); Red Blood Count 4.62 M/uL (4.70-6.10); White Blood Count 8.35 K/ul (4.8-10.8)
[2024-10-27 07:18] VITALS: BP 125/80; PULSE 87; RESP 20; TEMP 98.2; O2SAT 92
[2024-10-27 07:19] LABS: BUN Creatinine Ratio 18.4 (10-20); Calcium 9.6 mg/dl (8.6-10.3); Creatinine Clr Calc Pharmacy 127.7 ml/min; Potassium 3.6 mmol/L (3.5-5.1)
[2024-10-27] MEDS: PANTOprazole 40 MG TAB PO SCH (08:26)
--- NOTE | 2024-10-27 14:40 | Discharge Summary ---
Discharge Summary Date of Service date of admission - October 24, 2024 date of discharge - October 27, 2024 Principal Dx & Hospital Course #1 = Principal Diagnosis (1) Right hallux osteomyelitis: 54yo male with uncontrolled type 2 diabetes who has not followed with a PCP in over a year. Presented with a chronic right great toe ulceration/wound with evidence of acute infection worsening over the last week. x-ray with possible osteomyelitis of right great toe distal tuft. MRI of right great toe c/w osteomyelitis of the distal phalanx. He was started on broad-spectrum IV antibiotics. Culture from right great toe grew 2 pathogens --> * pansensitive strep canis * prevotella denticola Seen by Dr Antonino Denney, podiatry. Right great toe amputation advised given the severity of the infection and the presence of osteomyelitis. On 10/26/24 he was taken to the OR by Dr Jo-Ann Denney and underwent uncomplicated right great toe amputation. By report good surgical margins were obtained. At discharge, since we have source control, the following antibiotics were advised - * zyvox 600mg PO BID x 10 days * flagyl 500mg PO BID x 10 days Intra op cultures x 2 were ultimately negative. Patient was given a surgical shoe for the right foot and he can WBAT with that shoe in place. He was instructed to leave all dressings intact until seen for follow-up. On exam has intact arterial circulation; defer on duplex study of arterial system at this time. Needs improved glycemic control - see below. He will follow-up with podiatry within a week of discharge for post-op check. (2) T2DM (type 2 diabetes mellitus): uncontrolled with Hba1c 12.5%. was started on basal-bolus insulin while hospitalized with improved glycemic control. at discharge he will take the following - * metformin 1000mg BID * lantus 25 units daily he was given all the necessary glucometer & testing supplies. he was asked to check his BSGs twice daily at home. (3) Elevated blood pressure reading without diagnosis of hypertension: patient had several readings that were high intermittently throughout the visit. he was asked to check his blood pressures at home and report these to his PCP. DASH Diet handout was given. Notes For Next Care Provider f/u podiatry as outpatient within 1 week of discharge WBAT to right leg/foot with surgical shoe in place Medication Changes From Visit 1. zyvox 600mg BID x 10 days 2. flagyl 500mg BID x 10 days 3. lantus 25 units daily Admission HPI Per Admitting Provider Danish is a 54-year-old male who presents with a right toe infection and suspected osteo. Has had purulent drainage and fever in the last several days, did have a right toe blister has been chronic for several months. Danish is seen at the bedside with his present. Reports he has a history of diabetes on metformin but has not checked his blood sugar follow-up with a primary care doctor in over a year. Around 18 months ago he did develop a callus/wound over his right hallux which was generally okay up until a week ago. 1 week ago became warm and patient has had fever and chills. No cough or respiratory symptoms. No nausea/vomiting. The wound does have some clear discharge. No pain, does have diminished sensation in the feet bilaterally. Is felt feverish and was brought into the ER for evaluation with concerns for diabetic foot infection. He does not currently follow with a PCP. Previously followed with [facility] but is interested in switching to [facility] moving forward. Other than metformin he takes no regular medications Denies tobacco and alcohol use Penicillin allergy, rash Full code Endorses history of radicular back pain and diabetes. Denies other chronic medical problems Discharge Exam gen - NAD, pleasant, laying in bed comfortably mouth - MMM, no thrush neck - no JVD heart - RRR, s1 s2, no murmur lungs - CTA b/l abd - soft NT ND BS+ ext - b/l foot pulses 2+, no edema skin - right foot/ankle dressings intact, no bleeding from surgical site Discharge Plan Discharge Items Patient Disposition: Home - Self-Care Reason For Visit: Right great toe infection Discharge Diagnosis: 1. right great toe infection with osteomyelitis - amputation by Dr Denney 10/26/24 2. uncontrolled type 2 diabetes - hemoglobin a1c 12.5% Activity: Per Instructions section Bathing Comment: no baths/swimming; ok to shower, but keep R foot clean/dry at all times Weightbearing: Right weightbearing Weightbearing Comment: with surgical shoe in place on right foot Non-emergency contact: Primary Care Provider and Surgeon Call non-emergency contact if: you have any medication questions, your symptoms worsen, your pain is not controlled, your pain is worsening, your pain is unusual for you, your pain is concerning for you, you have a fever, your wound has increased redness, your wound has increased drainage and your wound pain has increased Follow-up/Referrals: Ru Martinez MD [Primary Care Provider] - Jo-Ann Denney DPM [Surgeon] - (within 5 days for post-op check ) Diet: Carb Consistent or DM2 Addtl Attending Provider Instructions: Mr Leal, You were treated for right great toe infection. There was evidence of bone infection (osteomyelitis) of the same toe. Dr Denney from podiatry saw you in consult. You ultimately had amputation of the right great toe. Cultures grew strep as well as another type of bacteria. During the stay you were started on insulin for your diabetes. Your sugars improved nicely during the hospitalization. Recommendations - 1. please use the surgical shoe on the right foot any time you are walking/bearing weight 2. antibiotics - * linezolid 600mg twice daily x 10 days, first dose TONIGHT * metronidazole 500mg twice daily x 10 days, first dose TONIGHT; this antibiotic can have a metallic taste to it; in addition it can some times cause mild stomach upset 3. diabetes - * please check your sugars every morning as well as at least one other time during the day (before lunch or before dinner or before bedtime) * keep a log of your sugars to show to your family doctor * resume your metformin upon return home; take with meals * insulin - start LANTUS 25 units once daily at bedtime (I went with a slightly smaller dose than what we had previously discussed); start the Lantus TONIGHT 4. continue to check your blood pressures at home. Keep a log of your blood pressures and show them to your family doctor. I suspect you will need medicine for your blood pressure. Your family doctor can manage this for you. See corrine tejeda on "DASH" diet. 5. leave the dressings intact on your right foot until you see podiatry this coming week. No need to change the dressings. Follow-up - see Dr Denney this coming week; see your new family doctor in 1-2 weeks Return to [facility] if - * you have fever over 100 degrees * you have worsening pain in your right foot * you have bleeding or excessive drainage from the right foot * you have any concerns about your diabetes * you have severe diarrhea (3 or more liquid stools in 24 hours) * any other concerns It was our pleasure to care for you! -Dr Choe Pending Studies at Discharge: Yes Studies:: wound cultures from operating room Stand-Alone Forms: My [facility], Smoking Cessation Medications and DC Order Prescriptions: New linezolid [Zyvox] 600 mg tablet 600 mg PO BID 10 Days Qty: 20 0RF metronidazole 500 mg tablet 500 mg PO BID 10 Days Qty: 20 0RF insulin glargine [Lantus Solostar U-100 Insulin] 100 unit/mL (3 mL) insulin pen 25 unit subcut PM Qty: 15 5RF (DME) Comfort EZ Pen [place] 33 gauge x 5/16" needle See Rx Instructions .Route Qty: 100 5RF Rx Instructions: As directed with lantus pen. (DME) blood-glucose meter [OneTouch Verio Flex meter] Misc See Rx Instructions .Route Qty: 1 1RF Rx Instructions: As directed (DME) OneTouch Verio test strips Strip See Rx Instructions .Route Qty: 100 5RF Rx Instructions: check blood sugars twice daily (DME) lancets [OneTouch Delica Plus Lancet] 33 gauge misc See Rx Instructions .Route Qty: 100 2RF Rx Instructions: check blood sugars twice daily Continued omeprazole 40 mg capsule,delayed release(DR/EC) 40 mg PO DAILYBB metformin 500 mg tablet extended release 24 hr 1,000 mg PO BIDM Discharge Orders: Discharge Order (Routine); Ordered 10/27/24 Ordered By: Sincere Burgos/Other Patient Handouts: Insulin Glargine Pen Injector, DVT Post Op Prevention, Hypoglycemia (Low Blood Sugar), DASH Plan Eat Heart Healthy Food, Managing Diabetes: The A1C Test, Diabetes: Meal Planning, Hypoglycemia Tx Steps Admission Data Admit Date/Time: 10/24/24 16:10 Attending Provider: Sincere Choe Admit Provider: Agustin Neal Primary Care Provider: Ru Martinez Other Providers: Antonino Denney; Jo-Ann Denney Other Interventions: Discharge Summary Assessment (RN) Last Done: 10/27/24 11:41 Hospital Stay Data Consultations Podiatry Procedures Performed Operation Date: 10/26/24 07:50 Actual Procedures Right Great Toe Amputation - Jo-Ann Denney DPM Diagnostic Imagining Performed Toe X-Ray 10/24/24 13:49 XR toe(s) RT min 2V CLINICAL HISTORY: DM, BLISTER R GREAT TOE, EVAL OSTEO COMPARISON: None FINDINGS: There is soft tissue swelling and gas at the great toe. There is a small area of cortical thinning at the distal tip of the first distal phalanx which could represent very early osteomyelitis. No other evidence of osteom yelitis seen. No fracture or dislocation. IMPRESSION: Possible early osteomyelitis at the distal tip of the first distal phalanx. ACT 112: Negative or not required by law. Electronically signed by: Eric Betancourt M.D. 10/24/2024 2:35 PM Foot MRI 10/25/24 10:46 MR foot RT wo/w con HISTORY: 54 years-old Male R great toe osteomyelitis? Acute pain and swelling of the right foot with possible great toe osteomyelitis COMPARISON: Radiograph 10/24/2024 TECHNIQUE: Multiplanar multisequence MRI of the right foot is obtained with and without IV contrast. FINDINGS: There is moderate subcutaneous edema throughout the great toe and dorsal foot. Peripherally enhancing cutaneous ulcer on the distal medial great toe measures up to 1.5 cm in length on image 8 series 5. No drainable fluid collection. This is surrounded by a 3 cm focus of decreased enhancement involving the soft tissues of the distal toe on image 7 series 11 and image 21 series 12 suggestive of tissue necrosis. The imaged flexor and extensor tendons and ligaments of the foot appear intact. Multifocal osteoarthritis, severe within the first MTP joint. There is marked marrow edema of the first distal phalanx along with moderately diffuse decreased T1 marrow signal and diffuse enhancement. No definite cortical erosion identified at this time. Relatively preserved marrow signal of the first proximal phalanx. Areas of scattered mild to moderate marrow edema throughout the mid foot secondary to osteoarthritis. IMPRESSION: 1. Marked marrow edema of the first distal phalanx with moderately decreased T1 marrow signal. The cortices appear relatively well preserved at this time without identifiable bony erosions. Findings are suggestive of reactive osteitis versus early developing osteomyelitis. 2. Great toe cutaneous ulcer/sinus tract extending to the adjacent distal phalangeal cortex. There is associated cellulitis with suggested distal toe tissue necrosis. 3. No definite abscess. ACT 112: Negative or not required by law. The above report was generated using voice recognition software. It may contain grammatical, syntax or spelling errors. Electronically signed by: Tiago Jo M.D. 10/25/2024 2:25 PM Pending Results Patient Have Any Pending Studies at Discharge: Yes Discharge Instructions Given to Patient (Per Discharging Provider) Mr Leal, You were treated for right great toe infection. There was evidence of bone infection (osteomyelitis) of the same toe. Dr Denney from podiatry saw you in consult. You ultimately had amputation of the right great toe. Cultures grew strep as well as another type of bacteria. During the stay you were started on insulin for your diabetes. Your sugars improved nicely during the hospitalization. Recommendations - 1. please use the surgical shoe on the right foot any time you are walking/bearing weight 2. antibiotics - * linezolid 600mg twice daily x 10 days, first dose TONIGHT * metronidazole 500mg twice daily x 10 days, first dose TONIGHT; this antibiotic can have a metallic taste to it; in addition it can some times cause mild stomach upset 3. diabetes - * please check your sugars every morning as well as at least one other time d uring the day (before lunch or before dinner or before bedtime) * keep a log of your sugars to show to your family doctor * resume your metformin upon return home; take with meals * insulin - start LANTUS 25 units once daily at bedtime (I went with a slightly smaller dose than what we had previously discussed); start the Lantus TONIGHT 4. continue to check your blood pressures at home. Keep a log of your blood pressures and show them to your family doctor. I suspect you will need medicine for your blood pressure. Your family doctor can manage this for you. See handout on "DASH" diet. 5. leave the dressings intact on your right foot until you see podiatry this coming week. No need to change the dressings. Follow-up - see Dr Denney this coming week; see your new family doctor in 1-2 weeks Return to [facility] if - * you have fever over 100 degrees * you have worsening pain in your right foot * you have bleeding or excessive drainage from the right foot * you have any concerns about your diabetes * you have severe diarrhea (3 or more liquid stools in 24 hours) * any other concerns It was our pleasure to care for you! -Dr Choe Total Time Total Time Spent Total Time Spent (In Minutes): 55 Coding Level of Care Code 49092 INP/OBS DISCH >30 MIN Diagnoses Right hallux osteomyelitis M86.9 T2DM (type 2 diabetes mellitus) E11.9 Elevated blood pressure reading without diagnosis of hypertension R03.0
--- NOTE | 2024-10-30 10:44 | Operative Report ---
Post Operative Report Pre & Post Diagnosis Operation Date: 10/26/24 07:50 Pre-Op Diagnosis: (1) Right hallux osteomyelitis. (2) Chronic ulcer of right foot with necrosis of bone. (3) Uncontrolled type 2 diabetes mellitus with hyperglycemia. (4) Diabetes mellitus with foot ulcer and gangrene. Post-Op Diagnosis: (1) Right hallux osteomyelitis. (2) Chronic ulcer of right foot with necrosis of bone. (3) Uncontrolled type 2 diabetes mellitus with hyperglycemia. (4) Diabetes mellitus with foot ulcer and gangrene. I identified the patient and participated in the time-out.: Yes Procedure Operation Date: 10/26/24 07:50 Actual Procedures p Right Great Toe Amputation(Right) - Jo-Ann Denney DPM Surgeon Jo-Ann Denney DPM Sat Tutor none Estimated Blood Loss 10 Findings Consistent with Post-Op Diagnosis Specimens 1.swab culture right hallux ulcer. 2. quant culture of right hallux soft tissue sent for aerobic/anaerobic with gram stain. 3. right hallux distal toe sent for pathology Anesthesia Type MAC Complications none Disposition Accompanied Patient To Recovery: Yes Indications Patient is a 54- year old male with right great toe diabetic toe ulcer with underlying suspected osteomyelitis. Patient presented to [facility] after his initial toe blister worsened. He did not initially seek medical treatment when he first developed the blister, because he thought it would heal with home treatment. Upon reviewing imaging, it does appear to be acute osteomyelitis of the distal phalanx of the right hallux toe. Discussed with the patient and his the recommended treatment plan of a partial toe amputation of the right great toe. Discussed the possible risks including but not limited to infection, swelling, transfer lesions, wound dehiscence, blood clots, deep venous thrombosis, pulmonary embolism, chronic pain, nerve injury, numbness, loss of toe, loss of limb, loss of life, failure of procedure and need for additional procedures. Discussed risks, benefits, and alternatives to surgery. Patient states he understands and wants to proceed. Description of Procedure The patient was brought back into the operating room and placed on the OR table in the supine position. A time was performed in order to correctly identify the patient, planned procedure, and correct side of limb. MAC was performed per the anesthesiologist. 10 cc of 0.5% marcaine plain was administered a hallux digital block under aseptic technique. The right lower extremity was scrubbed, prepped, and draped in the usual aseptic manner. A well padded sterile pneumatic ankle tourniquet was applied to the right ankle and the right lower extremity was elevated. The tourniquet was inflated to 250mmHg. An Esmarch bandage was not utilized. Attention was then directed to the right hallux toe at the hallux interphalangeal joint (HIPJ) where a fish mouth incision was made with the 15 blade. The ulcer was sharply excised and purulent drainage was noted. A swab culture was obtained. The incision was deepened down to the level the HIPJ, where the right hallux toe was disarticulated at the HIPJ, and passed from the operative field to the back table. Long flexor and extensor tendons to the hallux were sharply excised and passed from the operative field. Copious amount of saline was utilized to irrigate the surgical wound. No further purulent drainage could be identified proximally. The head of the promixal hallux phalanx appeared healthy with intact cartilage. The tourniquet was deflated and an immediate hyperemia was noted to the right foot. Deep closure was performed with 3-0 monocryl. The skin was coapted with 3-0 nylon in interrupted horizontal fashion. The incision was dressed with betadine soaked adapatic, 4x4 gauze, kerlix, and Alejandro bandage. The patient tolerated the procedure and anesthesia well with all vital signs stable and vascular status intact to the right foot. Attention was then directed to the sterile back table to obtain 2 specimens from the distal hallux toe as follows: 1. Right hallux distal phalanx soft tissue for aerobic and anaerobic cultures with gram stain and 2. Right distal hallux toe for pathology. The patient was transferred to recovery for brief post operative monitoring and will be transferred back to the floor for continued medical management. Recommendations for the patient to be discharged on 2 weeks of oral antibiotics and to follow up with our office in 1 week. The patient should keep the bandage dry, clean, and intact until the first post op visit in office. The patient may ambulate as tolerated in post op shoe. The patient is cleared for discharged per podiatry and to be discharged when stable per medicine. I attest to the content of the Intraoperative Record and any orders documented therein. Any exceptions are noted below.
== END 2024-10-27 15:07 | disposition home or self-care (01) | DRG 617 ==
LOC: ED 13:26 → SUATTDRO 16:10 → EDINP 16:10 → 3E 18:17